=== PATIENT | male | born 1995 ===

== ENCOUNTER 2024-08-16 09:08 | Outpatient (REF) | payer OTHER, SELFPAY ==
[2024-08-16 14:32] LABS: HCT 46.6 % (40.0-50.0); HGB 15.1 g/dL (13.5-17.5); MCHC 32.4 % (32.0-36.0); MCV 99 fL (80-95); MPV 10.8 fL (8.0-11.0); Platelet Count 349 10^3/uL (130-400); RBC 4.72 10^6/uL (4.36-5.78); RDW 12.6 % (11.8-14.1); RDW-SD 45.9 fL; WBC 7.01 10^3/uL (4.4-10.8)
[2024-08-16 14:48] LABS: Hemoglobin A1C 5.3 % (<5.7)
[2024-08-16 15:07] LABS: ALT 20 U/L (16-63); AST 18 U/L (15-37); Albumin 4.2 g/dL (3.4-5.0); Alkaline Phosphatase 86 U/L (46-116); BUN 17 mg/dL (7-18); Bilirubin, Total 0.3 mg/dL (0.2-1.0); CREATININE 0.9 mg/dL (0.70-1.30); Calcium 9.3 mg/dL (8.5-10.1); Calculated LDL 75 mg/dL (<100); Chloride 104 mmol/L (98-107); Cholesterol 166 mg/dL (<200); Estimated GFR 117.83 (mL/min/1.73m2); Glucose 90 mg/dL (74-106); HDL Cholesterol 77 mg/dL (>or=40); Potassium 5.1 mmol/L (3.5-5.1); Sodium 140 mmol/L (136-145); Total Protein 7.7 g/dL (6.4-8.2); Triglyceride 71 mg/dL (<150)
== END 2024-08-16 09:09 | disposition home or self-care (01) ==
LOC: NCHCN 09:08
PROVIDERS: Visit Provider Physician Assistant
DX: Z13.220 Encounter for screening for lipoid disorders (principal); Z13.6 Encounter for screening for cardiovascular disorders; Z13.1 Encounter for screening for diabetes mellitus
CPT/HCPCS: 80053; 80061; 85027; 83036